=== PATIENT | male | born 1945 | race Caucasian/White ===

== ENCOUNTER 2019-05-06 11:48 | Inpatient (IN) | payer MEDICARE ==
[~2019-05-06] VITALS: Ht 180.3 cm; Wt 70.3 kg
[2019-05-06 12:18] LABS: BASOPHILS # (AUTO) 0.1 K/uL (0.0-8.0); BASOPHILS % (AUTO) 1.1 % (0.0-2.0); EOSINOPHILS # (AUTO) 0.3 K/uL (0.0-0.7); HEMATOCRIT 38.4 % (36.7-47.1); HEMOGLOBIN 12.4 g/dL (12.5-16.3); LYMPHOCYTES % (AUTO) 13.3 % (20.5-51.5); MEAN CORPUSCULAR HEMOGLOBIN 30.2 uug (23.8-33.4); MEAN CORPUSCULAR HGB CONC 32 g/dL (32.5-36.3); MEAN CORPUSCULAR VOLUME 93.7 fL (73.0-96.2); NEUTROPHILS # (AUTO) 5.1 K/uL (1.8-8.9); NEUTROPHILS % (AUTO) 67.6 % (38.5-71.5); PLATELET COUNT (AUTO) 314 K/uL (152-348); WHITE BLOOD COUNT (AUTO) 7.5 K/uL (3.6-10.2)
[2019-05-06] MEDS ORDERED: WARF3TAB29 PO (12:18)
[2019-05-06] MEDS ORDERED: HYDR-4384 PO (12:18)
[2019-05-06] MEDS ORDERED: ASCO500T10 PO (12:18)
[2019-05-06] MEDS ORDERED: CEFE1VIA10 IV (12:18)
[2019-05-06] MEDS ORDERED: ACET-73 PO (12:18)
[2019-05-06] MEDS ORDERED: CARV6.252 PO (12:18)
[2019-05-06] MEDS ORDERED: CLIN900P10 IV (12:18)
[2019-05-06] MEDS ORDERED: VITA113O5 TP (12:18)
[2019-05-06] MEDS ORDERED: LACT1TAB13 PO (12:18)
[2019-05-06] MEDS ORDERED: ACET325T53 PO (12:18)
[2019-05-06 12:23] LABS: CARBON DIOXIDE 26 mmol/L (21-32); CHLORIDE 104 mmol/L (98-107); GLUCOSE 91 mg/dL (74-106); POTASSIUM 4.4 mmol/L (3.5-5.1); UREA NITROGEN, BLOOD 39 mg/dL (7-18)
[2019-05-06 12:29] LABS: ACETAMINOPHEN < 2.0 ug/mL (10-30); ALANINE AMINOTRANSFERASE 26 U/L (16-63); ALKALINE PHOSPHATASE 142 U/L (50-136); ASPARTATE AMINOTRANSFERASE 28 U/L (15-37); BILIRUBIN,DIRECT 0.1 mg/dL (0.0-0.2); BILIRUBIN,TOTAL 0.4 mg/dL (0.2-1.0); ETHANOL < 3 MG/DL (0-0); TOTAL PROTEIN, SERUM 7.6 g/dL (6.4-8.2)
[2019-05-06 13:20] LABS: *BILIRUBIN,URIN NEGATIVE (NEGATIVE); *CLARITY,URINE CLEAR (CLEAR); *COLOR,URINE YELLOW (YELLOW); *KETONES,URINE NEGATIVE (NEGATIVE); *UROBILINOGEN,URINE 0.2 E.U./dl (NORMAL); LEUKOCYTE ESTERASE ,URINE NEGATIVE (NEGATIVE); NITRITE, URINE NEGATIVE (NEGATIVE); PH,URINE 6.5 (5.0-8.0); UGLUCOSE NEGATIVE (NEGATIVE)
[2019-05-06 13:23] LABS: *BLOOD, URINE TRACE (NEGATIVE)
[2019-05-06 13:31] LABS: *AMPHETAMINE, URINE NEGATIVE (NEGATIVE); *BARBITURATE, URINE NEGATIVE (NEGATIVE); *CANNABINOID, URINE NEGATIVE (NEGATIVE); *COCCAINE, URINE NEGATIVE (NEGATIVE); *OPIATE, URINE NEGATIVE (NEGATIVE); *PHENCYCLIDINE SCREEN,URINE NEGATIVE (NEGATIVE)
--- NOTE | 2019-05-06 13:32 | NUR ---
pt eating hospital lunch tray with good apetite.
[2019-05-06 13:37] LABS: BACTERIA,URINE FEW /HPF (NONE SEEN); RBC,URINE 0-3 /HPF (0-3); SQUAMOUS EPITHELIAL CELL,UR FEW /HPF (NONE SEEN); WBC,URINE NONE SEEN /HPF (0-3)
--- NOTE | 2019-05-06 14:10 | NUR ---
PT RESTING, NO SIGN OF DISTRESS.
--- NOTE | 2019-05-06 14:19 | NUR ---
AMBULANCE [facility] TRIP NUMBER [id number] [id number]
--- NOTE | 2019-05-06 15:00 | NUR ---
DR. TIMO HATHAWAY AT BEDSIDE.
--- NOTE | 2019-05-06 16:52 | NUR ---
PT TRANSFERED TO FLOOR IN STABLE CONDITION. PT REMAINED CALM AND COOPERATIVE THE WHOLE ER STAY.
--- NOTE | 2019-05-06 17:00 | NUR ---
RECEIVED PATIENT FOR ADMISSION 74 YEARS OLD MALE WITH DX OD SEPSIS PLACED INTO BED FIXED AND MADE COMFORTABLE PATIENT IS ALERT BUT FORGETFUL ORIENTED TO FACILITY PROTOCOL VITALS CHECKED AND RECORDED MADE COMFORTABLE WILL CONTINUE TO OBSERVE.
[2019-05-06 17:30] VITALS: BP 133/89
[2019-05-06 18:14] VITALS: BP 133/89
--- NOTE | 2019-05-06 18:45 | NUR ---
SPOKE WITH DR MELGOZA AND ORDERS VERIFIED.
--- NOTE | 2019-05-06 19:30 | NUR ---
Received patient in bed, not in any form of distress and no complaints at the moment. IV access on right forearm is leaking, will remove and reinsert a new IV access on other arm. Patient calm and comfortable in bed. Noise and lights subdued. Will continue to monitor.
--- NOTE | 2019-05-06 20:30 | NUR ---
Contacted [facility], spoke to ENRIQUE Blevins who verified that patient received Cefepime 1gm IV dose today at 0800, Clindamycin 900mg IV was given at 0600 today and Coumadin has not yet been administered today. Will order mentioned medications accordingly, Dr. Mcdaniels ordered to continue medications from SN[facility].
[2019-05-06 20:45] VITALS: BP 121/66
[2019-05-06] MEDS: WARFARIN SODIUM 2 MG TABLET PO SCH (21:18)
[2019-05-06] MEDS ORDERED: CEFEPIME HCL 1 G in IV DEXTROSE 5% 50 ML IV SCH (22:00)
[2019-05-06] MEDS ORDERED: CLINDAMYCIN PHOSPHATE 600 MG/4 ML VIAL ONE (22:16)
[2019-05-06] MEDS ORDERED: CLINDAMYCIN 900MG/D5W 100ML IVPB **ER PYXIS ONLY IJ ONE (22:16)
[2019-05-06] MEDS: CLINDAMYCIN PHOSPHATE IV 900 MG in IV DEXTROSE 5% 100 ML IV SCH (22:23)
[2019-05-06] MEDS ORDERED: HYDROCODONE/APAP 5-325MG TABLET PO PRN (23:00)
[2019-05-06] MEDS ORDERED: ACETAMINOPHEN 325 MG TABLET PO PRN (23:00)
[2019-05-07 00:31] VITALS: BP 122/72
[2019-05-07 04:49] VITALS: BP 111/68
[2019-05-07] MEDS: CLINDAMYCIN PHOSPHATE IV 900 MG in IV DEXTROSE 5% 100 ML IV SCH ×3 (05:44→21:55)
--- NOTE | 2019-05-07 06:26 | NUR ---
Patient was complaining of difficulty breathing last night, started oxygen at 2lpm via nasal cannula with relief, patient saturating at 95-96%. Attended all needs. Ensured safety and comfort.
[2019-05-07 07:06] LABS: BASOPHILS # (AUTO) 0.1 K/uL (0.0-8.0); BASOPHILS % (AUTO) 1.1 % (0.0-2.0); EOSINOPHILS # (AUTO) 0.3 K/uL (0.0-0.7); EOSINOPHILS % (AUTO) 3.3 % (0.0-7.0); HEMATOCRIT 34.7 % (36.7-47.1); HEMOGLOBIN 11.5 g/dL (12.5-16.3); LYMPHOCYTES # (AUTO) 1.2 K/uL (20.0-40.0); LYMPHOCYTES % (AUTO) 15.8 % (20.5-51.5); MEAN CORPUSCULAR HEMOGLOBIN 30.4 uug (23.8-33.4); MEAN CORPUSCULAR HGB CONC 33 g/dL (32.5-36.3); MEAN CORPUSCULAR VOLUME 91.5 fL (73.0-96.2); MONOCYTES # (AUTO) 1.1 K/uL (2.0-10.0); MONOCYTES % (AUTO) 13.5 % (0.0-11.0); NEUTROPHILS # (AUTO) 5.2 K/uL (1.8-8.9); NEUTROPHILS % (AUTO) 66.3 % (38.5-71.5); PLATELET COUNT (AUTO) 359 K/uL (152-348); RED BLOOD CELL COUNT(AUTO) 3.79 MIL/uL (4.06-5.63); WHITE BLOOD COUNT (AUTO) 7.8 K/uL (3.6-10.2)
[2019-05-07] MEDS ORDERED: ACETAMINOPHEN 325 MG TABLET PO PRN (07:30)
[2019-05-07] MEDS ORDERED: ACETAMINOPHEN ES 500 MG TABLET PO PRN (07:30)
[2019-05-07] MEDS ORDERED: HYDROCODONE/APAP 5-325MG TABLET PO PRN (07:30)
[2019-05-07 07:56] LABS: ALANINE AMINOTRANSFERASE 26 U/L (16-63); ALKALINE PHOSPHATASE 128 U/L (50-136); ASPARTATE AMINOTRANSFERASE 22 U/L (15-37); BILIRUBIN,TOTAL 0.3 mg/dL (0.2-1.0); CARBON DIOXIDE 25 mmol/L (21-32); CHLORIDE 101 mmol/L (98-107); CREATININE 2.1 mg/dL (0.6-1.3); GLUCOSE 76 mg/dL (74-106); MAGNESIUM 1.7 mg/dL (1.8-2.4); PHOSPHOROUS 3.4 mg/dL (2.5-4.9); POTASSIUM 4.2 mmol/L (3.5-5.1); TOTAL PROTEIN, SERUM 7.3 g/dL (6.4-8.2); UREA NITROGEN, BLOOD 41 mg/dL (7-18)
[2019-05-07 08:16] LABS: EOSINOPHILS % (MANUAL) 4 % (0-8); LYMPHOCYTES % (MANUAL) 18 % (20-40); MONOCYTES % (MANUAL) 11 % (2-10); NEUTROPHILS % (MANUAL) 67 % (42-75)
[2019-05-07] MEDS: ACIDOPHILUS/BULGARICUS CHEW TAB PO SCH ×2 (08:56→21:14)
[2019-05-07] MEDS: CARVEDILOL 6.25 MG TABLET PO SCH (08:56)
[2019-05-07] MEDS: ASCORBIC ACID 500 MG TABLET PO SCH (08:57)
[2019-05-07] MEDS: NEOMY/BACITRAC/POLYMI OINT 28.35 GM TUBE TOP SCH (08:57)
[2019-05-07] MEDS ORDERED: SWABABLE VALVE TRANSFER SET EA MC SCH (09:00)
[2019-05-07] MEDS ORDERED: CEFEPIME HCL 1 G in IV DEXTROSE 5% 50 ML IV SCH (09:00)
[2019-05-07] MEDS ORDERED: CLOTRIMAZOLE 1% CREAM 30 GM TUBE TOP SCH (09:00)
[2019-05-07] MEDS: CEFEPIME HCL 1 G in IV DEXTROSE 5% 50 ML IV SCH (09:59)
[2019-05-07] MEDS ORDERED: CLINDAMYCIN PHOSPHATE IV 900 MG in IV DEXTROSE 5% 100 ML IV SCH (14:00)
[2019-05-07 15:38] VITALS: BP 132/63
[2019-05-07] MEDS ORDERED: MAGNESIUM SULFATE/D5W 100 ML IV SCH (16:00)
[2019-05-07] MEDS ORDERED: WARFARIN SODIUM 2 MG TABLET PO SCH (17:00)
[2019-05-07] MEDS: VITAMINS A AND D OINT TP SCH ×2 (17:10→21:56)
[2019-05-07] MEDS: WARFARIN SODIUM 2 MG TABLET PO SCH (17:10)
[2019-05-07 20:30] VITALS: BP 128/77
--- NOTE | 2019-05-07 22:47 | NUR ---
Received patient in bed, not in any form of distress and no complaints at the moment. Patient calm and comfortable in bed. Noise and lights subdued. Will continue to monitor.
[2019-05-08 01:08] VITALS: BP 118/73
[2019-05-08 05:17] VITALS: BP 120/74
[2019-05-08] MEDS: CLINDAMYCIN PHOSPHATE IV 900 MG in IV DEXTROSE 5% 100 ML IV SCH ×3 (05:37→21:04)
--- NOTE | 2019-05-08 06:28 | NUR ---
No untoward events noted last night. Attended all needs. Ensured safety and comfort.
[2019-05-08 06:41] LABS: CARBON DIOXIDE 26 mmol/L (21-32); CHLORIDE 103 mmol/L (98-107); CREATININE 2.1 mg/dL (0.6-1.3); GLUCOSE 89 mg/dL (74-106); MAGNESIUM 2.1 mg/dL (1.8-2.4); POTASSIUM 4.5 mmol/L (3.5-5.1); UREA NITROGEN, BLOOD 41 mg/dL (7-18)
[2019-05-08] MEDS: CARVEDILOL 6.25 MG TABLET PO SCH (08:00)
[2019-05-08] MEDS: NEOMY/BACITRAC/POLYMI OINT 28.35 GM TUBE TOP SCH (09:00)
[2019-05-08] MEDS: ASCORBIC ACID 500 MG TABLET PO SCH (09:00)
[2019-05-08] MEDS: ACIDOPHILUS/BULGARICUS CHEW TAB PO SCH ×2 (09:00→20:21)
[2019-05-08] MEDS: VITAMINS A AND D OINT TP SCH ×2 (09:00→20:22)
[2019-05-08 11:54] VITALS: BP 119/60
--- NOTE | 2019-05-08 14:12 | NUR ---
WOUND CARE CONSULT: PT PRESENTS WITH PLANTAR RAISED AREA, DISCOLORATION TO FEET AND LOWER LEGS, CHIN AND ARM DRY ABRASION AND RASH TO PERINEAL, GROIN AREAS, PRESENT ON ADMISSION. RECOMMENDATIONS MADE FOR SKIN PROTECTION AND CARE. DISCUSSED WITH NURSING STAFF. RECOMMEND DPM CONSULT FOR LOWER EXTREMITY ISSUES. DR PARISH NOTIFIED OF DPM CONSULT REQUEST. PT IS CONTINENT AT THIS TIME. CURRENT CONECPCION SCORE IS 15. WILL SEE PRN. KHAN IN AGREEMENT WITH PLAN OF CARE. Addendum: 05/08/19 at 1415 by EBEN REYES RN Amended: Links added.
[2019-05-08] MEDS ORDERED: Z GUARD REMEDY PASTE 57 GM TUBE TOP PRN (14:15)
[2019-05-08 15:14] VITALS: BP 124/75
[2019-05-08] MEDS: CEFEPIME HCL 1 G in IV DEXTROSE 5% 50 ML IV SCH (15:30)
[2019-05-08] MEDS: CLOTRIMAZOLE 1% CREAM 30 GM TUBE TOP SCH (17:00)
[2019-05-08] MEDS: WARFARIN SODIUM 2 MG TABLET PO SCH (17:38)
--- NOTE | 2019-05-08 19:40 | NUR ---
Received patient in bed awake. No acute distress noted in patient. O2 in place. Safety protocols in place. Bed locked, lowest position, semi fowlers with bed alarm on. Immediate needs attended. Will continue monitoring patient throughout shift.
[2019-05-08 20:00] VITALS: BP 103/63
[2019-05-08] MEDS: Z GUARD REMEDY PASTE 57 GM TUBE TOP SCH (20:22)
[2019-05-09 05:00] VITALS: BP 130/74
[2019-05-09] MEDS: CLINDAMYCIN PHOSPHATE IV 900 MG in IV DEXTROSE 5% 100 ML IV SCH ×2 (05:29→13:54)
--- NOTE | 2019-05-09 05:51 | NUR ---
Patient slept well throughout the night. No acute change in patient condition. O2 in place. Safety protocols in place. Bed locked, lowest position, semi fowlers with bed alarm on. Will endorse accordingly.
[2019-05-09] MEDS: CLOTRIMAZOLE 1% CREAM 30 GM TUBE TOP SCH ×2 (09:00→17:00)
[2019-05-09] MEDS: NEOMY/BACITRAC/POLYMI OINT 28.35 GM TUBE TOP SCH (09:00)
[2019-05-09] MEDS: Z GUARD REMEDY PASTE 57 GM TUBE TOP SCH (09:00)
[2019-05-09] MEDS: VITAMINS A AND D OINT TP SCH (09:00)
[2019-05-09] MEDS: ACIDOPHILUS/BULGARICUS CHEW TAB PO SCH (10:45)
[2019-05-09] MEDS: CARVEDILOL 6.25 MG TABLET PO SCH (10:45)
[2019-05-09] MEDS: ASCORBIC ACID 500 MG TABLET PO SCH (10:45)
[2019-05-09 11:09] VITALS: BP 102/55
[2019-05-09] MEDS ORDERED: CLOT30CR24 TOP (11:29)
[2019-05-09] MEDS: CEFEPIME HCL 1 G in IV DEXTROSE 5% 50 ML IV SCH (15:13)
[2019-05-09 15:30] VITALS: BP 91/46
[2019-05-09] MEDS: WARFARIN SODIUM 2 MG TABLET PO SCH (17:14)
--- NOTE | 2019-05-09 18:00 | NUR ---
PT. BECAME AGITATED AND AGGRESSIVE AFTER DINNER CAME. STATES "I DON"T LIKE THIS SHIT" AND PROCEEDED TO THROW HIS FOOD ACROSS THE ROOM. HE BEGAN TO SWEAR AT THE STAFF AND TOLD EVERYONE TO "FUCK OFF". STATES THAT HE WAS ANXIOUS TO BE DISCHARGED. REPORT CALLED TO TIM NUNEZ AT [facility]. DISCHARGED TO [facility] VIA AMBULANCE.
== END 2019-05-09 18:47 | DRG 193 ==
LOC: ER 11:48 → MEDSURG3 16:38 → TELE3 17:21 → MEDSURG3 05-08 12:00
PROVIDERS: ADMIT Internal Medicine Nephrology; ATTEND Internal Medicine Nephrology
DX: J15.9 Unspecified bacterial pneumonia (principal); E43 Unspecified severe protein-calorie malnutrition; G92 Toxic encephalopathy; N17.0 Acute kidney failure with tubular necrosis; L03.115 Cellulitis of right lower limb; F03.91 Unspecified dementia, unspecified severity, with behavioral disturbance; N18.4 Chronic kidney disease, stage 4 (severe); I13.10 Hypertensive heart and chronic kidney disease without heart failure, with stage 1 through stage 4 chronic kidney disease, or unspecified chronic kidney disease; F39 Unspecified mood [affective] disorder; L85.3 Xerosis cutis; S90.31XA Contusion of right foot, initial encounter; X58.XXXA Exposure to other specified factors, initial encounter; Y92.89 Other specified places as the place of occurrence of the external cause; I73.9 Peripheral vascular disease, unspecified; Z59.0 Homelessness; I48.91 Unspecified atrial fibrillation
CPT/HCPCS: 36415; 70030-TC; 71045; 80307; 83605; 83735; 84100; 85025; 85610; 93005; A4663; G0378; G0480; G0480-TC; J0692; J3475; J3490; J7050; J7060